=== PATIENT | female | born 1945 | race Two or more races ===

== ENCOUNTER 2018-11-16 09:51 | Outpatient (CLI) | payer OTHER ==
[~2018-11-16 09:51] MED LIST: ASA81 MG; GLUCOPHAGE XR500 MG; TROPOL
== END 2018-11-16 10:08 | disposition home or self-care (01) ==
LOC: NUCLEAR 09:51
DX: I73.9 Peripheral vascular disease, unspecified (principal); I87.2 Venous insufficiency (chronic) (peripheral)

== ENCOUNTER 2018-12-15 08:21 | Outpatient (CLI) | payer OTHER | END 2018-12-15 08:34 | disposition home or self-care (01) | LOC: NUCLEAR 08:21 | DX: I87.2 Venous insufficiency (chronic) (peripheral) (principal) ==

== ENCOUNTER 2019-02-09 10:24 | Inpatient (IN) | payer OTHER ==
[~2019-02-09] VITALS: Ht 160 cm; Wt 61.2 kg
[2019-02-11] MEDS ORDERED: TOPROL XL25 M1 (16:09)
[2019-02-16] MEDS ORDERED: TRAM1TAB98 PO (12:21)
[2019-02-16] MEDS ORDERED: LEVAQUIN750 MG PO (12:21)
[2019-02-16] MEDS ORDERED: INTESTINEX680 M1 PO (12:21)
== END 2019-02-16 14:04 | disposition home or self-care (01) | DRG 639 ==
LOC: ER 10:24 → SEC-K 19:05 → MEDJ 19:05
PROVIDERS: ADMIT Internal Medicine
DX: E11.621 Type 2 diabetes mellitus with foot ulcer (principal); L97.522 Non-pressure chronic ulcer of other part of left foot with fat layer exposed; B96.5 Pseudomonas (aeruginosa) (mallei) (pseudomallei) as the cause of diseases classified elsewhere